=== PATIENT | male | born 1985 | race Caucasian/White ===

== ENCOUNTER 2019-04-21 13:56 | Inpatient (IN) | payer OTHER ==
[2019-04-21] MEDS ORDERED: NALOXONE HCL INJ 2 MG/2 ML DISP.SYRIN ONE (14:05)
[2019-04-21] MEDS ORDERED: NALOXONE HCL INJ 2 MG/2 ML DISP.SYRIN IV ONE (14:17)
[2019-04-21] MEDS ORDERED: LORAZEPAM INJ 2 MG/1 ML VIAL IV ONE ×2 (14:17→16:26)
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
[2019-04-21] MEDS: NORMAL SALINE 1000 ML 1,000 ML IV PRN ×3 (14:25→22:00)
[2019-04-21 14:26] LABS: HEMATOCRIT 49.1 % (37.9-51.0); HEMOGLOBIN 16.7 g/dL (13.5-17.0); INTERNATIONAL RATION (INR) 0.96; MEAN CORPUSCULAR HEMOGLOBIN 31.4 pg (27.0-33.4); MEAN CORPUSCULAR HGB CONC 33.9 g/dL (32.0-36.0); MEAN CORPUSCULAR VOLUME 92 fl (80-97); PARTIAL THROMBOPLASTIN TIME 24.7 SEC (23.5-35.8); PROTHROMBIN TIME 12.8 SEC (11.4-15.4); RED BLOOD COUNT 5.31 10^6/uL (4.35-5.55); WHITE BLOOD COUNT 6.7 10^3/uL (4.0-10.5)
[2019-04-21] MEDS ORDERED: PIPERACILLIN/TAZOBACTAM 4.5 GM VIAL IV ONE (14:56)
[2019-04-21] MEDS ORDERED: VANCOMYCIN HCL INJ 1000 MG VIAL IV ONE (14:56)
--- NOTE | 2019-04-21 14:58 | RADIOLOGY REPORT (SQ) ---
EXAM DESCRIPTION: CT HEAD WITHOUT COMPLETED DATE/TIME: 04/21/2019 2:48 pm REASON FOR STUDY: altered mental status COMPARISON: None. TECHNIQUE: Axial images acquired through the brain without intravenous contrast. Images reviewed wi th bone, brain and subdural windows. Additional sagittal and coronal reconstructions were generated. Images stored on PACS. All CT scanners at this facility use dose modulation, iterative reconstruction, and/or weight based d osing when appropriate to reduce radiation dose to as low as reasonably achievable (ALARA). [facility]: Dose Right [facility]: CareDose [facility]: Dose Right [facility]: Teradose 4D [facility]: Instantis RADIATION DOSE: CT Rad equipment meets quality standard of care and radiation dose reduction techniq ues were employed. CTDIvol: 53.2 mGy. DLP: 2194 mGy-cm. mGy. LIMITATIONS: None. FINDINGS: VENTRICLES: Normal size and contour. CEREBRUM: No masses. No hemorrhage. No midline shift. No evidence for acute infarction. Normal gra y/white matter differentiation. No areas of low density in the white matter. CEREBELLUM: No masses. No hemorrhage. No alteration of density. No evidence for acute infarction. EXTRAAXIAL SPACES: No fluid collections. No masses. ORBITS AND GLOBE: No intra- or extraconal masses. Normal contour of globe without masses. CALVARIUM: No fracture. PARANASAL SINUSES: No fluid or mucosal thickening. SOFT TISSUES: No mass or hematoma. OTHER: No other significant finding. IMPRESSION: NORMAL BRAIN CT WITHOUT CONTRAST. EVIDENCE OF ACUTE STROKE: NO. COMMENT: Quality ID # [id number]: Final reports with documentation of one or more dose reduction techniques (e.g., Automated exposure control, adjustment of the mA and/or kV according to patient size, use of iterative reconstruction technique) TECHNICAL DOCUMENTATION: JOB ID: [id number] [employer]- All Rights Reserved Reading location - IP/workstation name: [email or web address]
[2019-04-21 15:03] LABS: ABSOLUTE LYMPHOCYTES# (MANUAL) 1.1 10^3/uL (0.5-4.7); ABSOLUTE MONOCYTES # (MANUAL) 1.3 10^3/uL (0.1-1.4); BAND NEUTROPHILS % (MANUAL) 5 % (3-5); BASOPHILS % (MANUAL) 0 % (0-2); EOSINOPHILS % (MANUAL) 0 % (0-6); LYMPHOCYTES % (MANUAL) 17 % (13-45); MONOCYTES % (MANUAL) 19 % (3-13); NUCLEATED RED BLOOD CELLS 2 /100 WBC (0); SEGMENTED NEUTROPHILS % (MAN) 59 % (42-78); TOTAL CELLS COUNTED 100
--- NOTE | 2019-04-21 15:03 | RADIOLOGY REPORT (SQ) ---
EXAM DESCRIPTION: CHEST SINGLE VIEW COMPLETED DATE/TIME: 04/21/2019 2:52 pm REASON FOR STUDY: altered mental status COMPARISON: None. NUMBER OF VIEWS: One view. TECHNIQUE: Single frontal radiographic view of the chest acquired. LIMITATIONS: None. FINDINGS: LUNGS AND PLEURA: No opacities, masses or pneumothorax. No pleural effusion. MEDIASTINUM AND HILAR STRUCTURES: No masses or contour abnormality. HEART AND VASCULATURE: Cardiac enlargement. Vascular congestion. BONES: No acute findings. HARDWARE: None in the chest. OTHER: No other significant finding. IMPRESSION: CARDIAC ENLARGEMENT. VASCULAR CONGESTION. TECHNICAL DOCUMENTATION: JOB ID: [id number] [employer]- All Rights Reserved Reading location - IP/workstation name: [email or web address]
[2019-04-21 15:05] LABS: ANISOCYTOSIS SLIGHT; PLATELET COMMENT ADEQUATE; PLATELET LARGE PRESENT
[2019-04-21 15:07] LABS: PLATELET COUNT 199 10^3/uL (150-450); POLYCHROMASIA SLIGHT
[2019-04-21 15:42] LABS: ALANINE AMINOTRANSFERASE 46 U/L (21-72); ALBUMIN 4.3 g/dL (3.5-5.0); ALKALINE PHOSPHATASE 71 U/L (38-126); ANION GAP 16 (5-19); ASPARTATE AMINO TRANSFERASE 77 U/L (17-59); BILIRUBIN,DIRECT 0.4 mg/dL (0.0-0.4); BILIRUBIN,TOTAL 0.6 mg/dL (0.2-1.3); BLOOD UREA NITROGEN 36 mg/dL (7-20); CALCIUM 7.5 mg/dL (8.4-10.2); CARBON DIOXIDE 17 mmol/L (22-30); CHLORIDE 107 mmol/L (98-107); GLUCOSE 93 mg/dL (75-110); LIPASE 369.4 U/L (23-300); SODIUM 139.6 mmol/L (137-145); TOTAL PROTEIN 6.9 g/dL (6.3-8.2)
[2019-04-21 15:51] LABS: ACETAMINOPHEN < 10 ug/mL (10-30); ALCOHOL < 10 mg/dL (NONE DETECTED); SALICYLATE < 1.0 mg/dL (2.0-20.0)
[2019-04-21 15:54] LABS: POTASSIUM 7.2 mmol/L (3.6-5.0)
[2019-04-21] MEDS ORDERED: INSULIN REG, HUMAN 100 UNIT/ML 3 ML VIAL (PYX) IV ONE (15:55)
[2019-04-21] MEDS ORDERED: DEXTROSE 50%-WATER 25 GM/50 ML DISP.SYRIN IV ONE (15:55)
[2019-04-21] MEDS ORDERED: CALCIUM GLUCONATE 1000 MG/10 ML INJ IV ONE (15:55)
[2019-04-21] MEDS ORDERED: SODIUM POLYSTYRENE SULFONATE 15 GM/60 ML PO ONE (15:55)
[2019-04-21] MEDS ORDERED: SODIUM BICARBONATE 8.4% INJ 50 MEQ/50 ML DISP.SYRIN IV ONE (15:55)
[2019-04-21] MEDS ORDERED: NORMAL SALINE 1000 ML 1,000 ML IV ONE (15:58)
[2019-04-21 16:20] LABS: CREATINE KINASE 6281 U/L (55-170)
[2019-04-21 16:39] LABS: ARTERIAL BLOOD BASE EXCESS -8.3 mmol/L; ARTERIAL BLOOD H2CO3 1.02 mmol/L (1.05-1.35); ARTERIAL BLOOD HCO3 16.8 mmol/L (20-24); ARTERIAL BLOOD O2 SATURATION 85.6 % (94-98); ARTERIAL BLOOD PCO2 33.8 mmHg (35-45); ARTERIAL BLOOD PH 7.32 (7.35-7.45); ARTERIAL BLOOD PO2 53.8 mmHg (80-100); ARTERIAL BLOOD TOTAL CO2 17.9 mmol/L (23-27)
[2019-04-21 16:45] LABS: ARTERIAL BLOOD FIO2 4L
[2019-04-21] MEDS ORDERED: ACETAMINOPHEN 1,000 MG/100 ML RTUPB IV ONE (17:03)
[2019-04-21 17:06] LABS: APPEARANCE,URINE SLIGHTLY-CLOUDY; BILIRUBIN,URINE NEGATIVE (NEGATIVE); COLOR,URINE YELLOW; GLUCOSE, URINE >=500 mg/dL (NEGATIVE); KETONES,URINE NEGATIVE (NEGATIVE); LEUKOCYTE ESTERASE,URINE NEGATIVE (NEGATIVE); NITRITE,URINE NEGATIVE (NEGATIVE); PROTEIN,URINE NEGATIVE (NEGATIVE); URINE SPECIFIC GRAVITY 1.013; UROBILINOGEN,URINE NEGATIVE mg/dL (<2.0)
[2019-04-21 17:15] LABS: URINE AMPHETAMINES SCREEN NEGATIVE; URINE BARBITURATES SCREEN NEGATIVE; URINE BENZODIAZEPINES SCREEN NEGATIVE; URINE COCAINE SCREEN NEGATIVE; URINE MARIJUANA (THC) SCREEN NEGATIVE; URINE METHADONE SCREEN NEGATIVE; URINE PHENCYCLIDINE SCREEN NEGATIVE
[2019-04-21] MEDS ORDERED: DOCUSATE SODIUM 100 MG CAPSULE PO PRN (17:33)
[2019-04-21] MEDS ORDERED: MAG HYDROX/AL HYDROX/SIMETH SUSP 30 ML UDCUP PO PRN (18:32)
[2019-04-21] MEDS ORDERED: MAGNESIUM HYDROXIDE SUSP 30 ML UDCUP PO PRN (18:32)
[2019-04-21] MEDS ORDERED: PROMETHAZINE HCL INJ 25 MG/1 ML VIAL IV PRN (18:32)
[2019-04-21] MEDS ORDERED: HALOPERIDOL LACTATE INJ 5 MG/1 ML VIAL IV PRN (18:36)
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
[2019-04-21] MEDS: LORAZEPAM INJ 2 MG/1 ML VIAL IV PRN (21:26)
--- NOTE | 2019-04-21 22:41 | EKG REPORT ---
SEVERITY:- OTHERWISE NORMAL ECG - SINUS TACHYCARDIA BORDERLINE RIGHT AXIS DEVIATION : Confirmed by: Mariola Ortega MD 21-Apr-2019 22:40:46
[2019-04-22] MEDS ORDERED: CHLORPROMAZINE HCL INJ 25 MG/1 ML AMPULE ONE ×3 (00:01→22:27)
[2019-04-22 00:15] LABS: ANION GAP 9 (5-19); BLOOD UREA NITROGEN 30 mg/dL (7-20); CALCIUM 7.7 mg/dL (8.4-10.2); CARBON DIOXIDE 22 mmol/L (22-30); CHLORIDE 106 mmol/L (98-107); GLUCOSE 104 mg/dL (75-110); SODIUM 137.2 mmol/L (137-145)
[2019-04-22] MEDS: CHLORPROMAZINE HCL INJ 25 MG/1 ML AMPULE IV PRN ×3 (00:22→22:49)
[2019-04-22 00:23] LABS: ARTERIAL BLOOD BASE EXCESS -5.9 mmol/L; ARTERIAL BLOOD H2CO3 1.12 mmol/L (1.05-1.35); ARTERIAL BLOOD HCO3 19.3 mmol/L (20-24); ARTERIAL BLOOD O2 SATURATION 84.2 % (94-98); ARTERIAL BLOOD PCO2 37.1 mmHg (35-45); ARTERIAL BLOOD PH 7.33 (7.35-7.45); ARTERIAL BLOOD PO2 51.2 mmHg (80-100); ARTERIAL BLOOD TOTAL CO2 20.4 mmol/L (23-27)
[2019-04-22 00:25] LABS: POTASSIUM 5.5 mmol/L (3.6-5.0)
[2019-04-22 00:25] LABS: ARTERIAL BLOOD FIO2 4L
[2019-04-22] MEDS: HEPARIN SOD (PORCINE) 5,000 UNIT/ML 1 ML SYRINGE SUBCUT SCH ×4 (00:39→21:36)
[2019-04-22] MEDS: ARIPIPRAZOLE 5 MG TABLET PO SCH ×2 (00:39→21:37)
[2019-04-22] MEDS: FAMOTIDINE INJ/PF 20 MG/2 ML SDV IV SCH ×3 (01:07→21:36)
[2019-04-22] MEDS: MIRTAZAPINE 15 MG TABLET PO SCH ×2 (01:07→21:36)
[2019-04-22] MEDS: NORMAL SALINE 1000 ML 1,000 ML IV PRN ×4 (03:00→22:57)
[2019-04-22 05:57] LABS: ANION GAP 7 (5-19); BLOOD UREA NITROGEN 28 mg/dL (7-20); CALCIUM 7.1 mg/dL (8.4-10.2); CARBON DIOXIDE 23 mmol/L (22-30); CHLORIDE 107 mmol/L (98-107); GLUCOSE 98 mg/dL (75-110)
[2019-04-22 06:00] LABS: POTASSIUM 4.4 mmol/L (3.6-5.0)
[2019-04-22] MEDS ORDERED: MAGNESIUM SULFATE/D5W 1 GM/100 ML RTUPB IV ONE ×2 (07:00→08:31)
[2019-04-22 07:13] LABS: CREATINE KINASE 7520 U/L (55-170)
[2019-04-22] MEDS: DIVALPROEX SODIUM 500 MG TAB.SR.24H PO SCH (12:26)
--- NOTE | 2019-04-22 16:31 | PSYCHOLOGICAL NOTE ---
Psych Note - Psych Note Date seen by psych provider: 04/22/19 Time seen by psych provider: 09:00 Psych Note: Reason for Consult: Overdose Patient has an open case with the community paramedics. Bipolar per history PTSD per history Substance abuse LIZZETTE SWAIN is a 33 year old male with a history of bipolar 2, PTSD and possible substance use. Patient overdosed by snorting heroin; he historically abused pain pills PO. This reportedly occurred after the patient's girl friend broke up with him. He has a significant history of suicide attempts and is noncompliant with his mental health treatment. Patient is a combat with about 5 combat tours. Clinician notes there is significant discord between the patient's family and girl friend. Clinician ended today's visit with instructions that no more visits occur other than when the patient's father gets in today (he is currently driving from [place]). It is recommended that all visits occur separate and are ended at this first sign of any stress or discord. Patient clearly identified (by name) that his girlfriend was in the hospital visiting (this was before the patient's sister came) and then identified wanting Ro and Boris Swain (mother and father) to be part of his plan of care. This was asked when patient was alone. At this time, the patient has significantly improved with orientation and alertness; however, he seems to be easily swayed by loved ones to comply with allowing them in his plan of care (ie girl friend told him to say "out loud for everyone to hear" that she could be informed in his plan of care). Patient is recommended for IVC. Once medically cleared, placement in an inpatient psychiatric treatment facility will be attempted. Dr. Retana was consulted on the care and management of this patient; attending physician is in agreement with recommendations and disposition.
--- NOTE | 2019-04-22 17:04 | EKG REPORT ---
SEVERITY:- BORDERLINE ECG - SINUS TACHYCARDIA BORDERLINE PROLONGED QT INTERVAL : Confirmed by: Mariola Ortega MD 22-Apr-2019 17:04:08
--- NOTE | 2019-04-22 19:06 | PDOC PROGRESS REPORT ---
Subjective Progress Note for:: 04/22/19 Subjective:: Patient is fairly somnolent and confused. Cannot answer questions appropriately. I obtained information from his girlfriend. She tells me that he was found down in his apartment by a friend. The friend called her and then left. She drove over to his apartment and called EMS on her way over. She does not know why he overdosed or what the substances were that he used. Reason For Visit: ACUTE KIDNEY INJURY, OPIATE OVERDOSE, Physical Exam Vital Signs: Temp Pulse Resp BP Pulse Ox 99.7 F 95 18 123/99 H 92 04/22/19 16:36 04/22/19 16:36 04/22/19 16:36 04/22/19 16:36 04/22/19 16:36 Intake & Output 04/21/19 04/22/19 04/23/19 06:59 06:59 06:59 Intake Total 3183 2953 Output Total 2150 3100 Balance 1033 -147 Weight 102.8 kg General appearance: PRESENT: no acute distress, disheveled Head exam: PRESENT: atraumatic, normocephalic Eye exam: ABSENT: conjunctival injection, scleral icterus Ear exam: PRESENT: normal external ear exam Mouth exam: PRESENT: neck supple, tongue midline Neck exam: ABSENT: tracheostomy Respiratory exam: PRESENT: clear to auscultation constanza, unlabored. ABSENT: rales, rhonchi, wheezes Cardiovascular exam: PRESENT: RRR. ABSENT: systolic murmur Pulses: PRESENT: normal radial pulses GI/Abdominal exam: PRESENT: normal bowel sounds, soft. ABSENT: distended, firm, guarding, tenderness Rectal exam: PRESENT: deferred Gentrourinary exam: PRESENT: indwelling catheter Extremities exam: ABSENT: pedal edema Musculoskeletal exam: ABSENT: deformity Neurological exam: PRESENT: altered, oriented to person. ABSENT: oriented to pl [place], oriented to situation Psychiatric exam: PRESENT: unusual affect Skin exam: PRESENT: dry, intact, warm Results Laboratory Results: 04/21/19 14:03 04/22/19 05:06 04/21/19 04/21/19 04/21/19 19:04 23:46 23:46 Carbonic Acid HCO3/H2CO3 Ratio ABG pH ABG pCO2 ABG pO2 ABG HCO3 ABG O2 Saturation ABG Base Excess FiO2 Sodium 137.2 Potassium 5.5 H D Chloride 106 Carbon Dioxide 22 Anion Gap 9 BUN 30 H Creatinine 1.74 H Est GFR ( Amer) 55 L Est GFR (Non-Af Amer) 45 L Glucose 104 Lactic Acid 5.2 H 4.5 H Calcium 7.7 L Magnesium 04/22/19 04/22/19 04/22/19 00:03 05:06 05:06 Carbonic Acid 1.12 HCO3/H2CO3 Ratio 17:1 ABG pH 7.33 L ABG pCO2 37.1 ABG pO2 51.2 L ABG HCO3 19.3 L ABG O2 Saturation 84.2 L ABG Base Excess -5.9 FiO2 4L Sodium 137.0 Potassium 4.4 D Chloride 107 Carbon Dioxide 23 Anion Gap 7 BUN 28 H Creatinine 1.23 Est GFR ( Amer) > 60 Est GFR (Non-Af Amer) > 60 Glucose 98 Lactic Acid 2.4 H Calcium 7.1 L Magnesium 1.2 L* 04/22/19 04/22/19 09:18 12:13 Carbonic Acid HCO3/H2CO3 Ratio ABG pH ABG pCO2 ABG pO2 ABG HCO3 ABG O2 Saturation ABG Base Excess FiO2 Sodium Potassium Chloride Carbon Dioxide Anion Gap BUN Creatinine Est GFR ( Amer) Est GFR (Non-Af Amer) Glucose Lactic Acid Calcium Magnesium 1.8 1.8 04/21/19 04/22/19 15:16 05:06 Creatine Kinase 6281 H 7520 H Impressions: Chest X-Ray 04/21/19 00:00 IMPRESSION: CARDIAC ENLARGEMENT. VASCULAR CONGESTION. Head CT 04/21/19 00:00 IMPRESSION: NORMAL BRAIN CT WITHOUT CONTRAST. EVIDENCE OF ACUTE STROKE: NO. Assessment and Plan - Diagnosis (1) Toxic encephalopathy Is this a current diagnosis for this admission?: Yes Plan: Likely related to opiate overdose. His urine tox screen was positive for opiates and nothing else. We know he has a history of opiate use disorder. The patient has also not been taking his medications as prescribed for bipolar disorder and PTSD. Could be contributing to his toxic encephalopathy as well. So has rhabdo. He is more awake than he was yesterday. Vitals are stable. We will continue to monitor closely. (2) Opiate overdose Qualifiers: Encounter type: initial encounter Injury intent: undetermined intent Qualified Code(s): T40.604A - Poisoning by unspecified narcotics, undetermined, initial encounter Is this a current diagnosis for this admission?: Yes Plan: The psychiatry team has learned this afternoon that the patient was snorting heroin in the home. We do not know if this was a side attempt. We do know that this patient has an opiate use disorder. He is not awake enough for us to interact with him in a meaningful way. Morphine IV is available for opiate withdrawal. Secondary to his history of suicide attempt by opiate use and other means in the past the psychiatry team has started an IVC process. I have signed the paperwork because I agree. (3) Acute renal failure Qualifiers: Acute renal failure type: unspecified Qualified Code(s): N17.9 - Acute kidney failure, unspecified Is this a current diagnosis for this admission?: Yes Plan: Likely secondary to rhabdo. Renal function is improving, not back to normal and he has no history of chronic kidney disease. Continue aggressive fluid hydration. 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 He has severe PTSD. Has not been taking his medications as prescribed. Dietary has been consulted. (5) Rhabdomyolysis Qualifiers: Rhabdomyolysis type: non-traumatic Qualified Code(s): M62.82 - Rhabdomyolysis Is this a current diagnosis for this admission?: Yes Plan: CK increasing, renal function improving. Continue aggressive fluid hydration. Monitor closely. Recheck CK and renal function in the morning. (6) Suicide attempt Is this a current diagnosis for this admission?: Yes Plan: He has had several suicide attempts in the past. We do not know if this was an active suicide attempt. Psychiatry is on board. He has an IVC in process though we can learn more about him in the events that led to his admission. He has significant bipolar disorder and PTSD. He has significant trauma related to combat duty in the [facility]. He may need psychiatric inpatient treatment after he stabilizes medically. - Time Time Spent with patient: 25-34 minutes Medications reviewed and adjusted accordingly: Yes - Inpatient Certification Based on my medical assessment, after consideration of the patient's comorbidities, presenting symptoms, or acuity I expect that the services needed warrant INPATIENT care.: Yes I certify that my determination is in accordance with my understanding of Medicare's requirements for reasonable and necessary INPATIENT services [42 CFR 412.3e].: Yes Medical Necessity: Significant Comorbidiites Make Outpatient Treatment Too Risky, Need Close Monitoring Due to Risk of Patient Decompensation, Need For IV Fluids
[2019-04-23] MEDS: NORMAL SALINE 1000 ML 1,000 ML IV PRN ×4 (04:00→20:26)
[2019-04-23] MEDS: ACETAMINOPHEN 325 MG TABLET PO PRN ×3 (04:23→20:25)
[2019-04-23] MEDS: HEPARIN SOD (PORCINE) 5,000 UNIT/ML 1 ML SYRINGE SUBCUT SCH ×3 (05:01→21:49)
[2019-04-23 05:26] LABS: HEMATOCRIT 33.8 % (37.9-51.0); MEAN CORPUSCULAR HEMOGLOBIN 31.4 pg (27.0-33.4); MEAN CORPUSCULAR HGB CONC 35.2 g/dL (32.0-36.0); MEAN CORPUSCULAR VOLUME 89 fl (80-97); PLATELET COUNT 143 10^3/uL (150-450); RED BLOOD COUNT 3.78 10^6/uL (4.35-5.55); RED CELL DISTRIBUTION WIDTH 13.5 % (11.5-14.0); WHITE BLOOD COUNT 8.1 10^3/uL (4.0-10.5)
[2019-04-23 05:38] LABS: HEMOGLOBIN 11.9 g/dL (13.5-17.0)
[2019-04-23 05:55] LABS: ALANINE AMINOTRANSFERASE 49 U/L (21-72); ALBUMIN 2.9 g/dL (3.5-5.0); ALKALINE PHOSPHATASE 65 U/L (38-126); ANION GAP 6 (5-19); ASPARTATE AMINO TRANSFERASE 113 U/L (17-59); BILIRUBIN,DIRECT 0.3 mg/dL (0.0-0.4); BILIRUBIN,TOTAL 0.8 mg/dL (0.2-1.3); BLOOD UREA NITROGEN 12 mg/dL (7-20); CALCIUM 7.7 mg/dL (8.4-10.2); CARBON DIOXIDE 26 mmol/L (22-30); CHLORIDE 107 mmol/L (98-107); GLUCOSE 94 mg/dL (75-110); POTASSIUM 3.7 mmol/L (3.6-5.0); SODIUM 139.3 mmol/L (137-145); TOTAL PROTEIN 5.3 g/dL (6.3-8.2)
[2019-04-23 06:20] LABS: CREATINE KINASE 5851 U/L (55-170)
[2019-04-23] MEDS: FAMOTIDINE INJ/PF 20 MG/2 ML SDV IV SCH (09:58)
[2019-04-23] MEDS: DIVALPROEX SODIUM 500 MG TAB.SR.24H PO SCH (11:03)
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
--- NOTE | 2019-04-23 13:26 | PDOC PROGRESS REPORT ---
Subjective Progress Note for:: 04/23/19 Subjective:: Pt is conversant, does not remeber events of yesterday including does not remeber his Dad being present. No CP or SOB, no anxiety right now. No Abd pain, eating and drinking fine. No N/V. Comfortable with staying in the hospital. Reason For Visit: ACUTE KIDNEY INJURY, OPIATE OVERDOSE, Physical Exam Vital Signs: Temp Pulse Resp BP Pulse Ox 100.2 F 80 16 142/87 H 94 04/23/19 12:03 04/23/19 12:03 04/23/19 12:03 04/23/19 12:03 04/23/19 12:03 Intake & Output 04/22/19 04/23/19 04/24/19 06:59 06:59 06:59 Intake Total 3183 6050 1288 Output Total 2150 5675 1250 Balance 1033 375 38 Weight 102.8 kg 103.6 kg General appearance: PRESENT: no acute distress, cooperative, well-developed, well-nourished Head exam: PRESENT: atraumatic, normocephalic Eye exam: PRESENT: EOMI. ABSENT: conjunctival injection, scleral icterus Mouth exam: PRESENT: moist, tongue midline Neck exam: ABSENT: tracheostomy Respiratory exam: PRESENT: clear to auscultation constanza, symmetrical, unlabored. ABSENT: rales, rhonchi, wheezes Cardiovascular exam: PRESENT: RRR, +S1, +S2. ABSENT: systolic murmur Pulses: PRESENT: normal radial pulses, normal dorsalis pedis pul GI/Abdominal exam: PRESENT: normal bowel sounds, soft. ABSENT: distended, tenderness Rectal exam: PRESENT: deferred Gentrourinary exam: PRESENT: indwelling catheter, other - clear yellow urine Extremities exam: ABSENT: pedal edema Musculoskeletal exam: ABSENT: deformity Neurological exam: PRESENT: alert, awake, oriented to person, oriented to place, CN II-XII grossly intact. ABSENT: oriented to situation Psychiatric exam: PRESENT: flat affect, unusual affect Skin exam: PRESENT: dry, intact, warm Results Laboratory Results: 04/23/19 04:47 04/23/19 04:47 04/23/19 04/23/19 04:47 04:47 WBC 8.1 RBC 3.78 L Hgb 11.9 L D Hct 33.8 L MCV 89 MCH 31.4 MCHC 35.2 RDW 13.5 Plt Count 143 L Sodium 139.3 Potassium 3.7 Chloride 107 Carbon Dioxide 26 Anion Gap 6 BUN 12 Creatinine 0.91 Est GFR ( Amer) > 60 Est GFR (Non-Af Amer) > 60 Glucose 94 Calcium 7.7 L Total Bilirubin 0.8 AST 113 H ALT 49 Alkaline Phosphatase 65 Total Protein 5.3 L Albumin 2.9 L 04/21/19 04/22/19 04/23/19 15:16 05:06 04:47 Creatine Kinase 6281 H 7520 H 5851 H Impressions: Chest X-Ray 04/21/19 00:00 IMPRESSION: CARDIAC ENLARGEMENT. VASCULAR CONGESTION. Head CT 04/21/19 00:00 IMPRESSION: NORMAL BRAIN CT WITHOUT CONTRAST. EVIDENCE OF ACUTE STROKE: NO. Assessment and Plan - Diagnosis (1) Toxic encephalopathy Is this a current diagnosis for this admission?: Yes Plan: multifactorial with opiate overdose, suboptimal psych med use at home and rha bdomyolysis all planning a role. Slow improvment. Had IV morphine prn available for opiate withdrawal symptoms. Cont IVF for rhabdo and psych has been consulted. (2) Opiate overdose Qualifiers: Encounter type: initial encounter Injury intent: undetermined intent Qualified Code(s): T40.604A - Poisoning by unspecified narcotics, undetermined, initial encounter Is this a current diagnosis for this admission?: Yes Plan: possible SA. IVC has been activated. Psych working on [place] group home psychiatric placement once he is medically cleared. (3) Acute renal failure Qualifiers: Acute renal failure type: unspecified Qualified Code(s): N17.9 - Acute kidney failure, unspecified Is this a current diagnosis for this admission?: Yes Plan: improving, renal fxn back to normal, cont IVF for elevated CK and recheck cody rrow. (4) Posttraumatic stress disorder Is this a current diagnosis for this admission?: Yes Plan: cont current meds aripiprazole (bipolar) and depakote, collaborate with Dr. Retana on care plan. (5) Rhabdomyolysis Qualifiers: Rhabdomyolysis type: non-traumatic Qualified Code(s): M62.82 - Rhabdomyolysis Is this a current diagnosis for this admission?: Yes Plan: CK improved, cont IVF, remove yin as he is more stable on his feet and is uncomfortable with yin. Cont IV overnight and rechk CK and BMP tomorrow. - Time Time Spent with patient: 15-24 minutes - Inpatient Certification Based on my medical assessment, after consideration of the patient's comorbidities, presenting symptoms, or acuity I expect that the services needed warrant INPATIENT care.: Yes I certify that my determination is in accordance with my understanding of Medicare's requirements for reasonable and necessary INPATIENT services [42 CFR 412.3e].: Yes Medical Necessity: Significant Comorbidiites Make Outpatient Treatment Too Risky, Need Close Monitoring Due to Risk of Patient Decompensation, Need For IV Fluids
[2019-04-23 16:23] LABS: ARTERIAL BLOOD BASE EXCESS 1.1 mmol/L; ARTERIAL BLOOD H2CO3 0.91 mmol/L (1.05-1.35); ARTERIAL BLOOD HCO3 23.3 mmol/L (20-24); ARTERIAL BLOOD O2 SATURATION 88.7 % (94-98); ARTERIAL BLOOD PCO2 30.2 mmHg (35-45); ARTERIAL BLOOD PH 7.51 (7.35-7.45); ARTERIAL BLOOD PO2 49.1 mmHg (80-100); ARTERIAL BLOOD TOTAL CO2 24.3 mmol/L (23-27)
[2019-04-23 16:26] LABS: ARTERIAL BLOOD FIO2 ROOM AIR
[2019-04-23] MEDS: ARIPIPRAZOLE 5 MG TABLET PO SCH (21:48)
[2019-04-23] MEDS: LORAZEPAM INJ 2 MG/1 ML VIAL IV PRN (21:48)
[2019-04-23] MEDS: FAMOTIDINE 20 MG TABLET PO SCH (21:50)
[2019-04-23] MEDS: MIRTAZAPINE 15 MG TABLET PO SCH (21:50)
[2019-04-24] MEDS: ACETAMINOPHEN 325 MG TABLET PO PRN (00:45)
[2019-04-24 01:18] LABS: ARTERIAL BLOOD BASE EXCESS 0.2 mmol/L; ARTERIAL BLOOD H2CO3 0.92 mmol/L (1.05-1.35); ARTERIAL BLOOD HCO3 22.7 mmol/L (20-24); ARTERIAL BLOOD O2 SATURATION 99.2 % (94-98); ARTERIAL BLOOD PCO2 30.4 mmHg (35-45); ARTERIAL BLOOD PH 7.49 (7.35-7.45); ARTERIAL BLOOD PO2 157.1 mmHg (80-100); ARTERIAL BLOOD TOTAL CO2 23.6 mmol/L (23-27)
[2019-04-24 01:22] LABS: ARTERIAL BLOOD FIO2 50%
[2019-04-24] MEDS: NORMAL SALINE 1000 ML 1,000 ML IV PRN ×3 (01:37→21:12)
[2019-04-24] MEDS: MORPHINE SULFATE 10 MG/ML INJ IV PRN ×4 (02:00→21:47)
[2019-04-24] MEDS ORDERED: CHLORPROMAZINE HCL INJ 25 MG/1 ML AMPULE ONE (03:00)
[2019-04-24] MEDS: HEPARIN SOD (PORCINE) 5,000 UNIT/ML 1 ML SYRINGE SUBCUT SCH ×3 (06:10→21:45)
[2019-04-24 07:02] LABS: ARTERIAL BLOOD BASE EXCESS 0 mmol/L; ARTERIAL BLOOD H2CO3 0.87 mmol/L (1.05-1.35); ARTERIAL BLOOD HCO3 22.2 mmol/L (20-24); ARTERIAL BLOOD O2 SATURATION 97.1 % (94-98); ARTERIAL BLOOD PCO2 28.9 mmHg (35-45); ARTERIAL BLOOD PO2 82.5 mmHg (80-100); ARTERIAL BLOOD TOTAL CO2 23.1 mmol/L (23-27)
[2019-04-24 07:03] LABS: ARTERIAL BLOOD FIO2 6 L
[2019-04-24 07:24] LABS: ANION GAP 8 (5-19); BLOOD UREA NITROGEN 8 mg/dL (7-20); CALCIUM 7.8 mg/dL (8.4-10.2); CARBON DIOXIDE 26 mmol/L (22-30); CHLORIDE 106 mmol/L (98-107); GLUCOSE 93 mg/dL (75-110); POTASSIUM 3.4 mmol/L (3.6-5.0); SODIUM 139.7 mmol/L (137-145)
--- NOTE | 2019-04-24 09:15 | RADIOLOGY REPORT (SQ) ---
EXAM DESCRIPTION: CHEST SINGLE VIEW COMPLETED DATE/TIME: 04/24/2019 8:47 am REASON FOR STUDY: tachypnea, fever COMPARISON: 04/21/2019 NUMBER OF VIEWS: One view. TECHNIQUE: Single frontal radiographic view of the chest acquired. LIMITATIONS: None. FINDINGS: LUNGS AND PLEURA: Subsegmental consolidation lateral to the right heart border. There is a background of chronic interstitial pattern. MEDIASTINUM AND HILAR STRUCTURES: No masses or contour abnormality. HEART AND VASCULATURE: Cardiac enlargement. Vascular congestion. BONES: No acute findings. HARDWARE: None in the chest. OTHER: No other significant finding. IMPRESSION: Right middle lobe pneumonia. TECHNICAL DOCUMENTATION: JOB ID: [id number] [employer]- All Rights Reserved Reading location - IP/workstation name: [email or web address]
[2019-04-24] MEDS ORDERED: POTASSIUM CHLORIDE 10 MEQ CAPSULE.ER PO ONE (09:30)
[2019-04-24] MEDS: FAMOTIDINE 20 MG TABLET PO SCH ×2 (10:07→21:46)
[2019-04-24] MEDS: DIVALPROEX SODIUM 500 MG TAB.SR.24H PO SCH (10:09)
[2019-04-24] MEDS: PIPERACILLIN SODIUM/TAZOBACTAM 3.375 GM in NORMAL SALINE 100 ML IV SCH ×2 (12:54→17:16)
[2019-04-24 12:55] LABS: APPEARANCE,URINE CLEAR; BILIRUBIN,URINE NEGATIVE (NEGATIVE); COLOR,URINE YELLOW; GLUCOSE, URINE NEGATIVE (NEGATIVE); KETONES,URINE NEGATIVE (NEGATIVE); LEUKOCYTE ESTERASE,URINE NEGATIVE (NEGATIVE); NITRITE,URINE NEGATIVE (NEGATIVE); PROTEIN,URINE NEGATIVE (NEGATIVE); URINE SPECIFIC GRAVITY 1.006
[2019-04-24] MEDS: IPRATROPIUM/ALBUTEROL 0.5-2.5 MG/3 ML AMPUL NEB SCH ×2 (13:52→19:53)
--- NOTE | 2019-04-24 14:42 | Progress Note Acknowledgement ---
Progress Note Acknowledgement Progess Note Acknowledgement: I, the undersigned member of the medical staff with appropriate privileges and with supervisory authority over Leyda Sutherland, a [facility] practice allied health professional, acknowledge that I have reviewed the progress notes entered on this patient, and in my professional judgment believe that the assessment made and/or any care evidenced was appropriate
--- NOTE | 2019-04-24 14:42 | PDOC PROGRESS REPORT ---
Subjective Progress Note for:: 04/24/19 Subjective:: Patient was seen on morning rounds with his father at bedside; gives permission to speak with the patient while present. Patient reports continued fever with dyspnea overnight. He feels that the BiPAP has helped tremendously. He does have a slightly productive cough. He also complains of chest wall pain that worsens with deep inspiration and cough. Otherwise he denies headache, dizziness, chest pain, palpitations, abdominal pain, nausea vomiting and diarrhea. He reports good appetite. He has no other questions or concerns at this time. Father has no questions. No concerns per nursing. Reason For Visit: ACUTE KIDNEY INJURY, OPIATE OVERDOSE, Physical Exam Vital Signs: Temp Pulse Resp BP Pulse Ox 100.1 F 81 32 H 133/72 H 96 04/24/19 12:08 04/24/19 13:53 04/24/19 13:53 04/24/19 12:08 04/24/19 13:53 Intake & Output 04/23/19 04/24/19 04/25/19 06:59 06:59 06:59 Intake Total 6050 4956 1625 Output Total 5675 2850 1900 Balance 375 2106 -275 Weight 103.6 kg 101.4 kg General appearance: PRESENT: no acute distress, cooperative, well-developed, well-nourished Head exam: PRESENT: atraumatic, normocephalic Eye exam: PRESENT: conjunctiva pink, EOMI, PERRLA. ABSENT: scleral icterus Ear exam: PRESENT: normal external ear exam Mouth exam: PRESENT: moist, tongue midline Neck exam: ABSENT: carotid bruit, JVD, lymphadenopathy, thyromegaly Respiratory exam: PRESENT: rhonchi, symmetrical, tachypnea, unlabored, other - BiPAP. ABSENT: rales, wheezes Cardiovascular exam: PRESENT: RRR, +S1, +S2. ABSENT: diastolic murmur, rubs, systolic murmur Pulses: PRESENT: normal dorsalis pedis pul Vascular exam: PRESENT: normal capillary refill GI/Abdominal exam: PRESENT: normal bowel sounds, soft. ABSENT: distended, guarding, mass, organolmegaly, rebound, tenderness Rectal exam: PRESENT: deferred Extremities exam: PRESENT: full ROM. ABSENT: calf tenderness, clubbing, pedal edema Neurological exam: PRESENT: alert, awake, oriented to person, oriented to place, oriented to time, oriented to situation, CN II-XII grossly intact. ABSENT: motor sensory deficit Psychiatric exam: PRESENT: appropriate affect, normal mood. ABSENT: homicidal ideation, suicidal ideation Skin exam: PRESENT: dry, intact, warm. ABSENT: cyanosis, rash Results Laboratory Results: 04/23/19 04:47 04/24/19 06:30 04/23/19 04/24/19 04/24/19 16:05 01:00 06:30 Carbonic Acid 0.91 L 0.92 L HCO3/H2CO3 Ratio 25:1 24:1 ABG pH 7.51 H 7.49 H ABG pCO2 30.2 L 30.4 L ABG pO2 49.1 L 157.1 H ABG HCO3 23.3 22.7 ABG O2 Saturation 88.7 L 99.2 H ABG Base Excess 1.1 0.2 FiO2 ROOM AIR 50% Sodium 139.7 Potassium 3.4 L Chloride 106 Carbon Dioxide 26 Anion Gap 8 BUN 8 Creatinine 0.97 Est GFR ( Amer) > 60 Est GFR (Non-Af Amer) > 60 Glucose 93 Calcium 7.8 L Urine Color Urine Appearance Urine pH Ur Specific [place] Urine Protein Urine Glucose (UA) Urine Ketones Urine Blood Urine Nitrite Ur Leukocyte Esterase Urine WBC (Auto) Urine RBC (Auto) 04/24/19 04/24/19 06:45 10:11 Carbonic Acid 0.87 L HCO3/H2CO3 Ratio 25:1 ABG pH 7.50 H ABG pCO2 28.9 L ABG pO2 82.5 ABG HCO3 22.2 ABG O2 Saturation 97.1 ABG Base Excess 0 FiO2 6 L Sodium Potassium Chloride Carbon Dioxide Anion Gap BUN Creatinine Est GFR ( Amer) Est GFR (Non-Af Amer) Glucose Calcium Urine Color YELLOW Urine Appearance CLEAR Urine pH 7.0 Ur Specific [place] 1.006 Urine Protein NEGATIVE Urine Glucose (UA) NEGATIVE Urine Ketones NEGATIVE Urine Blood NEGATIVE Urine Nitrite NEGATIVE Ur Leukocyte Esterase NEGATIVE Urine WBC (Auto) 0 Urine RBC (Auto) 0 04/21/19 04/22/19 04/23/19 15:16 05:06 04:47 Creatine Kinase 6281 H 7520 H 5851 H Impressions: Head CT 04/21/19 00:00 IMPRESSION: NORMAL BRAIN CT WITHOUT CONTRAST. EVIDENCE OF ACUTE STROKE: NO. Chest X-Ray 04/24/19 00:00 IMPRESSION: Right middle lobe pneumonia. Assessment and Plan - Diagnosis (1) Pneumonia Qualifiers: Pneumonia type: due to unspecified organism Laterality: right Lung location: middle lobe of lung Qualified Code(s): J18.1 - Lobar pneumonia, unspecified organism Is this a current diagnosis for this admission?: Yes Plan: Patient is noted to have had a temperature since time of admission. T-max last 48 hours 102.7. Continues to be tachypneic with respiratory rate in the high 30s overnight requiring BiPAP with supplemental oxygen. WBCs remain normal. Chest x-ray this morning reveals right middle lobe pneumonia. Blood and sputum cultures pending. Patient is started on IV Zosyn. Begin scheduled nebulizer treatments. Mucinex twice daily. Incentive spirometer to bedside. Motrin scheduled 3 times daily for chest wall discomfort. Continue supplemental oxygen and BiPAP as needed. (2) Acute renal failure Qualifiers: Acute renal failure type: unspecified Qualified Code(s): N17.9 - Acute kidney failure, unspecified Is this a current diagnosis for this admission?: Yes Plan: Resolved. Renal fxn back to normal Cont IVF for elevated CK Avoid nephrotoxic medications as able. Monitor daily chemistries. (3) Opiate overdose Qualifiers: Encounter type: initial encounter Injury intent: undetermined intent Qualified Code(s): T40.604A - Poisoning by unspecified narcotics, undetermined, initial encounter Is this a current diagnosis for this admission?: Yes Plan: possible SA. IVC has been activated. Psych working on [facility] psychiatric placement once he is medically cleared. Supportive care. (4) Rhabdomyolysis Qualifiers: Rhabdomyolysis type: non-traumatic Qualified Code(s): M62.82 - Rhabd omyolysis Is this a current diagnosis for this admission?: Yes Plan: CK improved Continue generous IV fluids. Encourage p.o. intake. Monitor daily chemistry and CK. (5) Toxic encephalopathy Is this a current diagnosis for this admission?: Yes Plan: Resolved; patient is now alert and oriented x4. Multifactorial with opiate overdose, suboptimal psych med use at home and rhabdomyolysis all planning a role. Had IV morphine prn available for opiate withdrawal symptoms. Cont IVF for rhabdo and psych has been consulted. (6) Posttraumatic stress disorder Is this a current diagnosis for this admission?: Yes Plan: Cont current meds aripiprazole (bipolar) and depakote Haldol and Ativan as needed for acute agitation. [facility] Mental health services are consulted for IVC and medication recommendations. - Time Time Spent with patient: 35 or more minutes Medications reviewed and adjusted accordingly: Yes Anticipated discharge: Other - Inpatient psychiatric facility. Within: within 72 hours - Improvement in respiratory status related to RML pneumonia.
[2019-04-24] MEDS: IBUPROFEN 800 MG TABLET PO SCH ×2 (17:09→21:46)
[2019-04-24] MEDS: PREDNISONE 20 MG TABLET PO SCH (17:10)
[2019-04-24] MEDS: ARIPIPRAZOLE 5 MG TABLET PO SCH (21:46)
[2019-04-24] MEDS: GUAIFENESIN 600 MG TABLET.SA PO SCH (21:47)
[2019-04-24] MEDS: MIRTAZAPINE 15 MG TABLET PO SCH (21:47)
[2019-04-25] MEDS: PIPERACILLIN SODIUM/TAZOBACTAM 3.375 GM in NORMAL SALINE 100 ML IV SCH ×4 (00:16→16:48)
[2019-04-25] MEDS: IPRATROPIUM/ALBUTEROL 0.5-2.5 MG/3 ML AMPUL NEB SCH ×4 (02:12→20:04)
[2019-04-25] MEDS: ACETAMINOPHEN 325 MG TABLET PO PRN (04:23)
[2019-04-25] MEDS: MORPHINE SULFATE 10 MG/ML INJ IV PRN (04:24)
[2019-04-25] MEDS: NORMAL SALINE 1000 ML 1,000 ML IV PRN ×2 (04:29→21:50)
[2019-04-25 05:07] LABS: HEMATOCRIT 37.6 % (37.9-51.0); MEAN CORPUSCULAR HEMOGLOBIN 31.3 pg (27.0-33.4); MEAN CORPUSCULAR HGB CONC 34.5 g/dL (32.0-36.0); MEAN CORPUSCULAR VOLUME 91 fl (80-97); PLATELET COUNT 187 10^3/uL (150-450); RED BLOOD COUNT 4.14 10^6/uL (4.35-5.55); RED CELL DISTRIBUTION WIDTH 13.8 % (11.5-14.0); WHITE BLOOD COUNT 13.1 10^3/uL (4.0-10.5)
[2019-04-25 05:21] LABS: ANION GAP 8 (5-19); BLOOD UREA NITROGEN 11 mg/dL (7-20); CALCIUM 8.2 mg/dL (8.4-10.2); CARBON DIOXIDE 25 mmol/L (22-30); CHLORIDE 110 mmol/L (98-107); CREATINE KINASE 916 U/L (55-170); GLUCOSE 117 mg/dL (75-110); POTASSIUM 4.2 mmol/L (3.6-5.0); SODIUM 142.8 mmol/L (137-145)
[2019-04-25] MEDS: IBUPROFEN 800 MG TABLET PO SCH ×3 (05:45→21:39)
[2019-04-25] MEDS: HEPARIN SOD (PORCINE) 5,000 UNIT/ML 1 ML SYRINGE SUBCUT SCH ×3 (05:45→21:41)
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
[2019-04-25] MEDS ORDERED: KETOROLAC TROMETHAMINE INJ/PF 30 MG/1 ML SDV IV PRN (09:41)
[2019-04-25] MEDS: FAMOTIDINE 20 MG TABLET PO SCH ×2 (11:17→21:41)
[2019-04-25] MEDS: PREDNISONE 20 MG TABLET PO SCH ×2 (11:17→16:48)
[2019-04-25] MEDS: DIVALPROEX SODIUM 500 MG TAB.SR.24H PO SCH (11:17)
[2019-04-25] MEDS: GUAIFENESIN 600 MG TABLET.SA PO SCH ×2 (11:17→21:41)
[2019-04-25] MEDS: LIDOCAINE 5% (700 MG) TRANSDERMAL ADH..PATCH TP SCH (13:23)
[2019-04-25] MEDS: HYDROCODONE/ACETAMINOPHEN 5-325 MG TABLET PO PRN ×2 (13:23→21:41)
--- NOTE | 2019-04-25 16:37 | PDOC PROGRESS REPORT ---
Subjective Progress Note for:: 04/25/19 Subjective:: Patient was seen on morning rounds. He was found sitting upright to the edge of the bed, comfortably, on room air eating his breakfast. Patient reports continued fever with dyspnea overnight, though improved greatly from yesterday. He did use BiPAP again overnight with relief of dyspnea.. He continues to have a productive cough and chest wall pain that worsens with deep inspiration and cough. Otherwise he denies headache, dizziness, chest pain, palpitations, abdominal pain, nausea vomiting and diarrhea. He reports good appetite. He has no other questions or concerns at this time. No concerns per nursing. Reason For Visit: ACUTE KIDNEY INJURY, OPIATE OVERDOSE, Physical Exam Vital Signs: Temp Pulse Resp BP Pulse Ox 97.3 F 71 18 141/93 H 94 04/25/19 08:00 04/25/19 14:27 04/25/19 14:27 04/25/19 08:00 04/25/19 14:27 Intake & Output 04/24/19 04/25/19 04/26/19 06:59 06:59 06:59 Intake Total 4956 5131 1100 Output Total 2850 5100 Balance 2106 31 1100 Weight 101.4 kg 103.3 kg General appearance: PRESENT: no acute distress, cooperative, well-developed, well-nourished Head exam: PRESENT: atraumatic, normocephalic Eye exam: PRESENT: conjunctiva pink, EOMI, PERRLA. ABSENT: scleral icterus Mouth exam: PRESENT: moist, tongue midline Neck exam: ABSENT: carotid bruit, JVD, lymphadenopathy, thyromegaly Respiratory exam: PRESENT: rhonchi, symmetrical, unlabored. ABSENT: rales, wheezes Cardiovascular exam: PRESENT: RRR, +S1, +S2. ABSENT: diastolic murmur, rubs, systolic murmur Pulses: PRESENT: normal dorsalis pedis pul Vascular exam: PRESENT: normal capillary refill GI/Abdominal exam: PRESENT: normal bowel sounds, soft. ABSENT: distended, guarding, mass, organolmegaly, rebound, tenderness Rectal exam: PRESENT: deferred Extremities exam: PRESENT: full ROM. ABSENT: calf tenderness, clubbing, pedal edema Neurological exam: PRESENT: alert, awake, oriented to person, oriented to place, oriented to time, oriented to situation, CN II-XII grossly intact. ABSENT: motor sensory deficit Psychiatric exam: PRESENT: appropriate affect, normal mood. ABSENT: homicidal ideation, suicidal ideation Skin exam: PRESENT: dry, intact, warm. ABSENT: cyanosis, rash Results Laboratory Results: 04/25/19 04:18 04/25/19 04:18 04/25/19 04/25/19 04:18 04:18 WBC 13.1 H RBC 4.14 L Hgb 13.0 L Hct 37.6 L MCV 91 MCH 31.3 MCHC 34.5 RDW 13.8 Plt Count 187 Sodium 142.8 Potassium 4.2 Chloride 110 H Carbon Dioxide 25 Anion Gap 8 BUN 11 Creatinine 0.86 Est GFR ( Amer) > 60 Est GFR (Non-Af Amer) > 60 Glucose 117 H Calcium 8.2 L 04/21/19 04/22/19 04/23/19 15:16 05:06 04:47 Creatine Kinase 6281 H 7520 H 5851 H 04/25/19 04:18 Creatine Kinase 916 H Impressions: Head CT 04/21/19 00:00 IMPRESSION: NORMAL BRAIN CT WITHOUT CONTRAST. EVIDENCE OF ACUTE STROKE: NO. Chest X-Ray 04/24/19 00:00 IMPRESSION: Right middle lobe pneumonia. Assessment and Plan - Diagnosis (1) Pneumonia Qualifiers: Pneumonia type: due to unspecified organism Laterality: right Lung location: middle lobe of lung Qualified Code(s): J18.1 - Lobar pneumonia, unspecified organism Is this a current diagnosis for this admission?: Yes Plan: Patient is noted to have had a temperature since time of admission. T-max last 48 hours 102.7; afebrile x24. Tachypnea and tachycardia have improved. WBCs elevated to 13.1 today. Of note, patient was started on low-dose to steroids yesterday. Chest x-ray reveals right middle lobe pneumonia. Blood cultures are negative at 24 hours. Sputum cultures pending. Patient is started on IV Zosyn; day #2. Begin scheduled nebulizer treatments. Mucinex twice daily. Incentive spirometer to bedside. Lidoderm patches and Motrin scheduled 3 times daily for chest wall discomfort. [place] for severe pain. Continue supplemental oxygen and BiPAP as needed. (2) Acute renal failure Qualifiers: Acute renal failure type: unspecified Qualified Code(s): N17.9 - Acute kidney failure, unspecified Is this a current diagnosis for this admission?: Yes Plan: Resolved. Renal fxn back to normal Avoid nephrotoxic medications as able. Monitor daily chemistries. (3) Opiate overdose Qualifiers: Encounter type: initial encounter Injury intent: undetermined intent Qualified Code(s): T40.604A - Poisoning by unspecified narcotics, undetermined, initial encounter Is this a current diagnosis for this admission?: Yes Plan: possible SA. IVC has been activated. Psych working [facility] [place] [facility] once he is medically cleared. Supportive care. (4) Rhabdomyolysis Qualifiers: Rhabdomyolysis type: non-traumatic Qualified Code(s): M62.82 - Rhabdomyolysis Is this a current diagnosis for this admission?: Yes Plan: Improved; CK 916 this morning. Continue IV fluids. Encourage p.o. intake. Monitor daily chemistry and CK. (5) Toxic encephalopathy Is this a current diagnosis for this admission?: Yes Plan: Resolved; patient is now alert and oriented x4. Multifactorial with opiate overdose, suboptimal psych med use at home and rhabdomyolysis all planning a role. Evaluation management as above. (6) Posttraumatic stress disorder Is this a current diagnosis for this admission?: Yes Plan: Cont current meds aripiprazole and depakote Haldol and Ativan as needed for acute agitation. [facility] Mental health services are consulted for IVC and medication recommendations. - Time Time Spent with patient: 25-34 minutes Medications reviewed and adjusted accordingly: Yes Anticipated discharge: Other - Inpatient psychiatric facility Within: within 48 hours
[2019-04-25] MEDS: ARIPIPRAZOLE 5 MG TABLET PO SCH (21:40)
[2019-04-25] MEDS: MIRTAZAPINE 15 MG TABLET PO SCH (21:41)
[2019-04-25] MEDS: LORAZEPAM INJ 2 MG/1 ML VIAL IV PRN (21:51)
[2019-04-26] MEDS: PIPERACILLIN SODIUM/TAZOBACTAM 3.375 GM in NORMAL SALINE 100 ML IV SCH ×4 (00:29→17:27)
[2019-04-26] MEDS: IPRATROPIUM/ALBUTEROL 0.5-2.5 MG/3 ML AMPUL NEB SCH ×4 (02:11→20:49)
[2019-04-26] MEDS ORDERED: GUAIFENESIN SYRP 200 MG/10 ML UDC PO PRN (02:19)
[2019-04-26] MEDS: HEPARIN SOD (PORCINE) 5,000 UNIT/ML 1 ML SYRINGE SUBCUT SCH ×3 (05:04→22:02)
[2019-04-26] MEDS: IBUPROFEN 800 MG TABLET PO SCH ×3 (05:04→22:02)
[2019-04-26 05:13] LABS: HEMATOCRIT 32.7 % (37.9-51.0); HEMOGLOBIN 11.3 g/dL (13.5-17.0); MEAN CORPUSCULAR HEMOGLOBIN 30.9 pg (27.0-33.4); MEAN CORPUSCULAR HGB CONC 34.5 g/dL (32.0-36.0); MEAN CORPUSCULAR VOLUME 90 fl (80-97); PLATELET COUNT 180 10^3/uL (150-450); RED BLOOD COUNT 3.64 10^6/uL (4.35-5.55); WHITE BLOOD COUNT 7.9 10^3/uL (4.0-10.5)
[2019-04-26 05:31] LABS: ANION GAP 8 (5-19); BLOOD UREA NITROGEN 11 mg/dL (7-20); CALCIUM 8.1 mg/dL (8.4-10.2); CARBON DIOXIDE 23 mmol/L (22-30); CHLORIDE 111 mmol/L (98-107); CREATINE KINASE 477 U/L (55-170); GLUCOSE 109 mg/dL (75-110); POTASSIUM 3.8 mmol/L (3.6-5.0); SODIUM 142.3 mmol/L (137-145)
[2019-04-26] MEDS: NORMAL SALINE 1000 ML 1,000 ML IV PRN (07:03)
[2019-04-26] MEDS: FAMOTIDINE 20 MG TABLET PO SCH ×2 (09:32→22:02)
[2019-04-26] MEDS: GUAIFENESIN 600 MG TABLET.SA PO SCH ×2 (09:32→22:02)
[2019-04-26] MEDS: PREDNISONE 20 MG TABLET PO SCH (09:33)
[2019-04-26] MEDS: LIDOCAINE 5% (700 MG) TRANSDERMAL ADH..PATCH TP SCH (09:33)
[2019-04-26] MEDS: DIVALPROEX SODIUM 500 MG TAB.SR.24H PO SCH (11:15)
[2019-04-26] MEDS ORDERED: HYDROCODONE/ACETAMINOPHEN 5-325 MG TABLET PO PRN (12:58)
--- NOTE | 2019-04-26 14:35 | RADIOLOGY REPORT (SQ) ---
EXAM DESCRIPTION: CHEST SINGLE VIEW COMPLETED DATE/TIME: 04/26/2019 1:49 pm REASON FOR STUDY: chest pain COMPARISON: 04/24/2019, 04/21/2019 EXAM PARAMETERS: NUMBER OF VIEWS: One view. TECHNIQUE: Single frontal radiographic view of the chest acquired. RADIATION DOSE: NA LIMITATIONS: None. FINDINGS: LUNGS AND PLEURA: Bilateral alveolar and interstitial infiltrates in the perihilar and low er lobes, pulmonary edema versus pneumonia. No gross pleural effusions or pneumothorax. No worrisome pulmonary nodules. MEDIASTINUM AND HILAR STRUCTURES: No masses. Contour normal. HEART AND VASCULAR STRUCTURES: Borderline cardiomegaly BONES: No acute findings. HARDWARE: None in the chest. OTHER: No other significant finding. IMPRESSION: Diffuse bilateral perihilar and lower lobe infiltrates worrisome for pulmonary edema. P neumonia could mimic this TECHNICAL DOCUMENTATION: JOB ID: [id number] [employer]- All Rights Reserved Reading location - IP/workstation name: [email or web address]
[2019-04-26] MEDS: ACETAMINOPHEN 325 MG TABLET PO PRN (15:56)
[2019-04-26] MEDS ORDERED: FUROSEMIDE INJ/PF 20 MG/2 ML SDV IV ONE (16:00)
[2019-04-26] MEDS: HYDROCODONE/ACETAMINOPHEN 5-325 MG TABLET PO PRN ×2 (17:31→22:05)
--- NOTE | 2019-04-26 17:37 | PDOC PROGRESS REPORT ---
Subjective Progress Note for:: 04/26/19 Subjective:: Patient was seen on morning rounds. He was found resting in bed, comfortably, on room air. Initially he was sleeping but woke easily when I said his name. He complains of continued right lateral and posterior chest wall discomfort; especially with deep cough and breathing. Otherwise he states that he is feeling better. Otherwise he denies headache, dizziness, fever, chills, chest pain, palpitations, abdominal pain, nausea vomiting and diarrhea. He reports good appetite. He has no other questions or concerns at this time. No concerns per nursing. Reason For Visit: ACUTE KIDNEY INJURY, OPIATE OVERDOSE, Physical Exam Vital Signs: Temp Pulse Resp BP Pulse Ox 98.0 F 71 14 130/81 H 96 04/26/19 07:40 04/26/19 14:00 04/26/19 13:07 04/26/19 07:40 04/26/19 13:07 Intake & Output 04/25/19 04/26/19 04/27/19 06:59 06:59 06:59 Intake Total 5131 3100 1100 Output Total 5100 4 Balance 31 3096 1100 Weight 103.3 kg 101.8 kg General appearance: PRESENT: no acute distress, cooperative, well-developed, well-nourished Head exam: PRESENT: atraumatic, normocephalic Eye exam: PRESENT: conjunctiva pink, EOMI, PERRLA. ABSENT: scleral icterus Ear exam: PRESENT: normal external ear exam Mouth exam: PRESENT: moist, tongue midline Neck exam: ABSENT: carotid bruit, JVD, lymphadenopathy, thyromegaly Respiratory exam: PRESENT: decreased breath sounds - Bibasilar, rhonchi, symmetrical, unlabored. ABSENT: rales, wheezes Cardiovascular exam: PRESENT: RRR, +S1, +S2. ABSENT: diastolic murmur, rubs, systolic murmur Pulses: PRESENT: normal dorsalis pedis pul Vascular exam: PRESENT: normal capillary refill GI/Abdominal exam: PRESENT: normal bowel sounds, soft. ABSENT: distended, guarding, mass, organolmegaly, rebound, tenderness Rectal exam: PRESENT: deferred Extremities exam: PRESENT: full ROM. ABSENT: calf tenderness, clubbing, pedal edema Neurological exam: PRESENT: alert, awake, oriented to person, oriented to place, oriented to time, oriented to situation, CN II-XII grossly intact. ABSENT: motor sensory deficit Psychiatric exam: PRESENT: appropriate affect, normal mood. ABSENT: homicidal ideation, suicidal ideation Skin exam: PRESENT: dry, intact, warm. ABSENT: cyanosis, rash Results Laboratory Results: 04/26/19 04:59 04/26/19 04:59 04/26/19 04/26/19 04/26/19 04:59 04:59 04:59 WBC 7.9 RBC 3.64 L Hgb 11.3 L Hct 32.7 L MCV 90 MCH 30.9 MCHC 34.5 RDW 14.0 Plt Count 180 Sodium 142.3 Potassium 3.8 Chloride 111 H Carbon Dioxide 23 Anion Gap 8 BUN 11 Creatinine 0.74 Est GFR ( Amer) > 60 Est GFR (Non-Af Amer) > 60 Glucose 109 Lactic Acid 1.3 Calcium 8.1 L 04/21/19 16:10 Blood Blood Culture - Final NO GROWTH IN 5 DAYS 04/21/19 15:16 Blood Blood Culture - Final NO GROWTH IN 5 DAYS 04/21/19 04/22/19 04/23/19 15:16 05:06 04:47 Creatine Kinase 6281 H 7520 H 5851 H 04/25/19 04/26/19 04:18 04:59 Creatine Kinase 916 H 477 H Impressions: Head CT 04/21/19 00:00 IMPRESSION: NORMAL BRAIN CT WITHOUT CONTRAST. EVIDENCE OF ACUTE STROKE: NO. Chest X-Ray 04/26/19 00:00 IMPRESSION: Diffuse bilateral perihilar and lower lobe infiltrates worrisome for pulmonary edema. Pneumonia could mimic this Assessment and Plan - Diagnosis (1) Pneumonia Qualifiers: Pneumonia type: due to unspecified organism Laterality: right Lung location: middle lobe of lung Qualified Code(s): J18.1 - Lobar pneumonia, unspecified organism Is this a current diagnosis for this admission?: Yes Plan: Improved; leukocytosis has resolved, afebrile x48 hours, decreased oxygen requirement. Tachypnea and tachycardia have resolved. Chest x-ray reveals right middle lobe pneumonia. Repeat chest x-ray shows diffuse bilateral lower lobe infiltrates worrisome for pulmonary edema; patient did receive aggressive IV fluid hydration for treatment of rhabdomyolysis. Blood cultures are negative at 48 hours. Sputum cultures pending. Patient is started on IV Zosyn; day #3. Plan to transition to oral Augmentin tomorrow if clinically stable. Continue scheduled nebulizer treatments. Mucinex twice daily. Incentive spirometer to bedside. Lidoderm patches and Motrin scheduled 3 times daily for chest wall discomfort. [place] for severe pain. Continue supplemental oxygen and BiPAP as needed. (2) Acute renal failure Qualifiers: Acute renal failure type: unspecified Qualified Code(s): N17.9 - Acute kidney failure, unspecified Is this a current diagnosis for this admission?: Yes Plan: Resolved. Renal fxn back to normal Avoid nephrotoxic medications as able. Monitor daily chemistries. (3) Opiate overdose Qualifiers: Encounter type: initial encounter Injury intent: undetermined intent Qualified Code(s): T40.604A - Poisoning by unspecified narcotics, undetermined, initial encounter Is this a current diagnosis for this admission?: Yes Plan: possible SA. IVC has been activated. Psych working on [place] [facility] psychiatric placement once he is medically cleared. Supportive care. (4) Rhabdomyolysis Qualifiers: Rhabdomyolysis type: non-traumatic Qualified Code(s): M62.82 - Rhabdomyolysis Is this a current diagnosis for this admission?: Yes Plan: Improved; CK 477 this morning. Encourage p.o. intake. Monitor daily chemistry and CK. (5) Toxic encephalopathy Is this a current diagnosis for this admission?: Yes Plan: Resolved; patient is now alert and oriented x4. Multifactorial with opiate overdose, suboptimal psych med use at home and rhabdomyolysis all planning a role. Evaluation management as above. (6) Posttraumatic stress disorder Is this a current diagnosis for this admission?: Yes Plan: Cont current meds aripiprazole and depakote Haldol and Ativan as needed for acute agitation. [facility] Mental health services are consulted for IVC and medication recommendations. (7) Pulmonary edema Qualifiers: Chronicity: acute Qualified Code(s): J81.0 - Acute pulmonary edema Is this a current diagnosis for this admission?: Yes Plan: Secondary to aggressive IV fluid hydration for treatment of rhabdomyolysis and ROHAN. Unfortunately, strict I&O's have not been obtained. IV fluids are discontinued. Patient is provided a one-time dose of IV furosemide 10 mg. - Time Time Spent with patient: 25-34 minutes Medications reviewed and adjusted accordingly: Yes Anticipated discharge: Other - Inpatient psychiatric facility Within: when bed available
[2019-04-26] MEDS: ARIPIPRAZOLE 5 MG TABLET PO SCH (22:01)
[2019-04-26] MEDS: MIRTAZAPINE 15 MG TABLET PO SCH (22:02)
[2019-04-27] MEDS: PIPERACILLIN SODIUM/TAZOBACTAM 3.375 GM in NORMAL SALINE 100 ML IV SCH ×2 (00:36→05:16)
[2019-04-27] MEDS: IPRATROPIUM/ALBUTEROL 0.5-2.5 MG/3 ML AMPUL NEB SCH ×2 (01:41→08:08)
[2019-04-27] MEDS: IBUPROFEN 800 MG TABLET PO SCH ×3 (05:14→22:46)
[2019-04-27] MEDS: HEPARIN SOD (PORCINE) 5,000 UNIT/ML 1 ML SYRINGE SUBCUT SCH ×3 (05:15→22:47)
[2019-04-27] MEDS ORDERED: ALBUTEROL SULFATE 0.083% NEB 2.5 MG/3 ML AMPUL NEB PRN (09:14)
[2019-04-27] MEDS: FAMOTIDINE 20 MG TABLET PO SCH ×2 (09:52→22:46)
[2019-04-27] MEDS: GUAIFENESIN 600 MG TABLET.SA PO SCH ×2 (09:52→22:46)
--- NOTE | 2019-04-27 11:39 | PDOC PROGRESS REPORT ---
Subjective Progress Note for:: 04/27/19 Subjective:: Patient is medically cleared for discharge. Patient was seen on morning rounds. He was found resting in bed, comfortably, on room air. Initially he was sleeping but woke easily when I said his name. He reports that he is feeling well today. Denies shortness of breath and cough. Does continue to have right chest wall discomfort. He further denies headache, dizziness, fever, chills, chest pain, palpitations, abdominal pain, nausea vomiting and diarrhea. He reports good appetite. He has no other questions or concerns at this time. No concerns per nursing. Reason For Visit: ACUTE KIDNEY INJURY, OPIATE OVERDOSE, Physical Exam Vital Signs: Temp Pulse Resp BP Pulse Ox 97.8 F 77 18 142/85 H 97 04/27/19 08:29 04/27/19 08:29 04/27/19 08:29 04/27/19 08:29 04/27/19 08:29 Intake & Output 04/26/19 04/27/19 04/28/19 06:59 06:59 06:59 Intake Total 3100 2870 100 Output Total 4 Balance 3096 2870 100 Weight 101.8 kg 104.8 kg General appearance: PRESENT: no acute distress, well-developed, well-nourished Head exam: PRESENT: atraumatic, normocephalic Eye exam: PRESENT: conjunctiva pink, EOMI, PERRLA. ABSENT: scleral icterus Ear exam: PRESENT: normal external ear exam Mouth exam: PRESENT: moist, tongue midline Neck exam: ABSENT: carotid bruit, JVD, lymphadenopathy, thyromegaly Respiratory exam: PRESENT: clear to auscultation [place], symmetrical, unlabored. ABSENT: rales, rhonchi, wheezes Cardiovascular exam: PRESENT: RRR. ABSENT: diastolic murmur, rubs, systolic murmur Pulses: PRESENT: normal dorsalis pedis pul Vascular exam: PRESENT: normal capillary refill GI/Abdominal exam: PRESENT: normal bowel sounds, soft. ABSENT: distended, guarding, mass, organolmegaly, rebound, tenderness Rectal exam: PRESENT: deferred Extremities exam: PRESENT: full ROM. ABSENT: calf tenderness, clubbing, pedal edema Neurological exam: PRESENT: alert, awake, oriented to person, oriented to place, oriented to time, oriented to situation, CN II-XII grossly intact. ABSENT: motor sensory deficit Psychiatric exam: PRESENT: appropriate affect, normal mood. ABSENT: homicidal ideation, suicidal ideation Skin exam: PRESENT: dry, intact, warm. ABSENT: cyanosis, rash Results Laboratory Results: 04/26/19 04:59 04/26/19 04:59 04/21/19 16:10 Blood Blood Culture - Final NO GROWTH IN 5 DAYS 04/21/19 15:16 Blood Blood Culture - Final NO GROWTH IN 5 DAYS 04/21/19 04/22/19 04/23/19 15:16 05:06 04:47 Creatine Kinase 6281 H 7520 H 5851 H 04/25/19 04/26/19 04:18 04:59 Creatine Kinase 916 H 477 H Impressions: Head CT 04/21/19 00:00 IMPRESSION: NORMAL BRAIN CT WITHOUT CONTRAST. EVIDENCE OF ACUTE STROKE: NO. Chest X-Ray 04/26/19 00:00 IMPRESSION: Diffuse bilateral perihilar and lower lobe infiltrates worrisome for pulmonary edema. Pneumonia could mimic this Assessment and Plan - Diagnosis (1) Pneumonia Qualifiers: Pneumonia type: due to unspecified organism Laterality: right Lung location: middle lobe of lung Qualified Code(s): J18.1 - Lobar pneumonia, unspecified organism Is this a current diagnosis for this admission?: Yes Plan: Improved; leukocytosis has resolved, afebrile >48 hours, now on room air. Tachypnea and tachycardia have resolved. Chest x-ray reveals right middle lobe pneumonia. Repeat chest x-ray shows diffuse bilateral lower lobe infiltrates worrisome for pulmonary edema; patient did receive aggressive IV fluid hydration for treatment of rhabdomyolysis. Blood cultures are negative at 48 hours and 5 days. Sputum cultures pending. Patient is started on IV Zosyn; day #4. Zosyn is discontinued; have started on oral Augmentin. Continue scheduled nebulizer treatments. Mucinex twice daily. Incentive spirometer to bedside. Lidoderm patches and Motrin scheduled 3 times daily for chest wall discomfort. [place] for severe pain; decreased dose today. Continue supplemental oxygen and BiPAP as needed. (2) Acute renal failure Qualifiers: Acute renal failure type: unspecified Qualified Code(s): N17.9 - Acute kidney failure, unspecified Is this a current diagnosis for this admission?: Yes Plan: Resolved. Renal fxn back to normal Avoid nephrotoxic medications as able. Monitor daily chemistries. (3) Opiate overdose Qualifiers: Encounter type: initial encounter Injury intent: undetermined intent Qualified Code(s): T40.604A - Poisoning by unspecified narcotics, undetermined, initial encounter Is this a current diagnosis for this admission?: Yes Plan: possible SA. IVC has been activated. [facility] once he is medically cleared. Supportive care. (4) Rhabdomyolysis Qualifiers: Rhabdomyolysis type: non-traumatic Qualified Code(s): M62.82 - Rhabdomyolysis Is this a current diagnosis for this admission?: Yes Plan: Improved; CK 477 this morning. Encourage p.o. intake. Monitor daily chemistry and CK. (5) Toxic encephalopathy Is this a current diagnosis for this admission?: Yes Plan: Resolved; patient is now alert and oriented x4. Multifactorial with opiate overdose, suboptimal psych med use at home and rhabdomyolysis all planning a role. Evaluation management as above. (6) Posttraumatic stress disorder Is this a current diagnosis for this admission?: Yes Plan: Cont current meds aripiprazole and depakote Haldol and Ativan as needed for acute agitation. [facility] Mental health services are consulted for IVC and medication recommendations. (7) Pulmonary edema Qualifiers: Chronicity: acute Qualified Code(s): J81.0 - Acute pulmonary edema Is this a current diagnosis for this admission?: Yes Plan: Resolved. Secondary to aggressive IV fluid hydration for treatment of rhabdomyolysis and ROHAN. Unfortunately, strict I&O's have not been obtained. IV fluids are discontinued. Patient was provided a one-time dose of IV furosemide 10 mg yesterday. Excellent urine output. - Time Time Spent with patient: 15-24 minutes Medications reviewed and adjusted accordingly: Yes Anticipated discharge: Other - Inpatient psychiatric facility Within: when bed available - Plan Summary Plan Summary: Patient is medically cleared for discharge. Remains under IVC status; disposition per mental health services.
[2019-04-27] MEDS: DIVALPROEX SODIUM 500 MG TAB.SR.24H PO SCH (12:27)
[2019-04-27] MEDS: HYDROCODONE/ACETAMINOPHEN 5-325 MG TABLET PO PRN ×2 (12:31→19:29)
[2019-04-27] MEDS: AMOXICILLIN TR/POT CLAVULANATE 500-125 MG TAB PO SCH ×2 (15:06→22:46)
[2019-04-27] MEDS: LIDOCAINE 5% (700 MG) TRANSDERMAL ADH..PATCH TP SCH (15:08)
--- NOTE | 2019-04-27 18:44 | RADIOLOGY REPORT (SQ) ---
EXAM DESCRIPTION: CHEST SINGLE VIEW COMPLETED DATE/TIME: 04/27/2019 6:31 pm REASON FOR STUDY: chest pain COMPARISON: 04/26/2019 TECHNIQUE: Single frontal radiographic view of the chest acquired. NUMBER OF VIEWS: One view. LIMITATIONS: None. FINDINGS: LUNGS AND PLEURA: No pneumothorax. Similar bilateral airspace-interstitial opacities. No significant pleural effusion. MEDIASTINUM AND HILAR STRUCTURES: Stable. HEART AND VASCULAR STRUCTURES: Stable. BONES: No acute findings. HARDWARE: None in the chest. OTHER: No other significant finding. IMPRESSION: Similar bilateral airspace-interstitial opacities. No significant pleural effusion. TECHNICAL DOCUMENTATION: JOB ID: [id number] [employer]- All Rights Reserved Reading location - IP/workstation name: [email or web address]
[2019-04-27] MEDS: MIRTAZAPINE 15 MG TABLET PO SCH (22:46)
[2019-04-27] MEDS: ARIPIPRAZOLE 5 MG TABLET PO SCH (22:47)
[2019-04-28] MEDS: HEPARIN SOD (PORCINE) 5,000 UNIT/ML 1 ML SYRINGE SUBCUT SCH ×2 (05:33→16:53)
[2019-04-28] MEDS: AMOXICILLIN TR/POT CLAVULANATE 500-125 MG TAB PO SCH ×2 (05:33→16:48)
[2019-04-28] MEDS: IBUPROFEN 800 MG TABLET PO SCH ×2 (05:33→16:48)
--- NOTE | 2019-04-28 08:34 | EKG REPORT ---
SEVERITY:- NORMAL ECG - SINUS BRADYCARDIA : Confirmed by: Clyde Bradford MD 28-Apr-2019 08:33:14
[2019-04-28] MEDS: GUAIFENESIN 600 MG TABLET.SA PO SCH (12:18)
[2019-04-28] MEDS: DIVALPROEX SODIUM 500 MG TAB.SR.24H PO SCH (12:19)
[2019-04-28] MEDS: HYDROCODONE/ACETAMINOPHEN 5-325 MG TABLET PO PRN ×2 (12:19→16:45)
[2019-04-28] MEDS: FAMOTIDINE 20 MG TABLET PO SCH (12:19)
[2019-04-28] MEDS: LIDOCAINE 5% (700 MG) TRANSDERMAL ADH..PATCH TP SCH (12:22)
[2019-04-28 14:02] VITALS: BP 148/97
--- NOTE | 2019-04-28 15:41 | RADIOLOGY REPORT (SQ) ---
EXAM DESCRIPTION: CHEST SINGLE VIEW COMPLETED DATE/TIME: 04/28/2019 3:00 pm REASON FOR STUDY: Eval pulmonary edema COMPARISON: Chest films 04/27/2019, 04/26/2019, 04/24/2019, 04/21/2019 EXAM PARAMETERS: NUMBER OF VIEWS: One view. TECHNIQUE: Single frontal radiographic view of the chest acquired. RADIATION DOSE: NA LIMITATIONS: None. FINDINGS: LUNGS AND PLEURA: Upper lobe airspace disease seen on 04/21/2019 has resolved. There is mid and lower lung airspace disease bilaterally, edema versus pneumonia. This is stable com pared to 04/27/2019. No pleural effusions. No pneumothorax. MEDIASTINUM AND HILAR STRUCTURES: No masses. Contour normal. HEART AND VASCULAR STRUCTURES: Heart normal in size. Normal vasculature. BONES: No acute findings. HARDWARE: None in the chest. OTHER: No other significant finding. IMPRESSION: Persistent mid and lower lung airspace disease bilaterally, edema versus pneumonia TECHNICAL DOCUMENTATION: JOB ID: [id number] [employer]- All Rights Reserved Reading location - IP/workstation name: [email or web address]
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
[2019-04-28] MEDS ORDERED: FUROSEMIDE 20 MG TABLET PO ONE (17:00)
== END 2019-04-28 17:30 | DRG 917 ==
LOC: ER 13:56 → EH 16:13 → UNDOADMIN 16:13 → 3N 20:23 → 5 04-28 10:40
PROVIDERS: ADMIT Hospitalist; ATTEND Hospitalist
PROC: 5A09557 Assistance with Respiratory Ventilation, Greater than 96 Consecutive Hours, Continuous Positive Airway Pressure (ICD-10-PCS; principal; 2019-04-22)
DX: T40.604A Poisoning by unspecified narcotics, undetermined, initial encounter (principal); J18.1 Lobar pneumonia, unspecified organism; G92 Toxic encephalopathy; J81.0 Acute pulmonary edema; N17.0 Acute kidney failure with tubular necrosis; M62.82 Rhabdomyolysis; F31.81 Bipolar II disorder; F43.10 Post-traumatic stress disorder, unspecified; E87.5 Hyperkalemia; Y92.009 Unspecified place in unspecified non-institutional (private) residence as the place of occurrence of the external cause; Z91.5 Personal history of self-harm; Z87.820 Personal history of traumatic brain injury; Z60.2 Problems related to living alone; Z91.19 Patient's noncompliance with other medical treatment and regimen; Z63.0 Problems in relationship with spouse or partner; Z82.49 Family history of ischemic heart disease and other diseases of the circulatory system; Z91.14 Patient's other noncompliance with medication regimen
CPT/HCPCS: 36415; 70450; 71045; 80048; 80053; 80164; 80307; 81001; 82140; 82550; 82803; 83605; 83690; 83735; 84484; 85025; 85027; 85610; 85730; 87040; 87070; 87205; 93005; 93010; 94640; 94660; 94799; 96361; 96374; 96375; 99291; J0131; J0610; J1644; J1815; J1940; J2060; J2270; J2310; J2543; J2550; J3230; J3370; J3475; J3490; J7030; J7050; J7512; J7620; S0028